=== PATIENT | female | born 1955 | race Caucasian/White ===

== ENCOUNTER 2016-09-01 13:29 | Emergency (ER) | payer BC ==
[2016-09-01 13:30] VITALS: BP 140/68; PULSE 107; RESP 16; TEMP 98; O2SAT 98
--- NOTE | 2016-09-01 13:43 | PD ---
Physical Exam Time Seen by Provider: 13:42 Narrative 60 y/o female here for evaluation of a "nervous breakdown." Denies SI/HI. Vital signs reviewed. Seen at triage desk. Awaiting bed placement. Data Data Last Documented VS Vital Signs Date Time Temp Pulse Resp B/P Pulse Ox O2 Delivery O2 Flow Rate FiO2 09/01/16 13:30 98.0 107 16 140/68 98 MDM Medical Record Reviewed: Yes Supervised Visit with FRANSISCA: Rafael Rene Sep 01, 2016 13:43
[2016-09-01 14:20] LABS: AMPHETAMINE, URINE NEG (NEG); BARBITURATES, URINE NEG (NEG); COCAINE, URINE NEG (NEG)
[2016-09-01 14:29] LABS: AUTOMATED NEUTROPHIL # 5.4 TH/MM3 (1.8-7.7); BASOPHIL # 0.1 TH/MM3 (0-0.2); BASOPHIL % 0.8 % (0.0-2.0); EOSINOPHIL % 0.3 % (0.0-4.0); HEMATOCRIT 43.6 % (35.0-46.0); HEMO FLAGS DIFF FINAL; LYMPH % 30.7 % (9.0-44.0); LYMPHOCYTE # 2.6 TH/MM3 (1.0-4.8); MEAN CELL VOLUME 89.1 FL (80.0-100.0); MEAN CORPUSCULAR HEMOGLOBIN 29.9 PG (27.0-34.0); MEAN CORPUSCULAR HGB CONC 33.6 % (32.0-36.0); MONO % 5.8 % (0.0-8.0); NEUT % 62.4 % (16.0-70.0); PLATELET COUNT 340 TH/MM3 (150-450); RED BLOOD COUNT 4.89 MIL/MM3 (4.00-5.30); RED CELL DISTRIBUTION WIDTH 13.9 % (11.6-17.2); WHITE BLOOD COUNT 8.6 TH/MM3 (4.0-11.0)
[2016-09-01 14:44] LABS: ALT (GPT) 20 U/L (10-53); ANION GAP 7 MEQ/L (5-15); AST (GOT) 20 U/L (15-37); BICARBONATE 29.3 MEQ/L (21.0-32.0); BLOOD UREA NITROGEN 9 MG/DL (7-18); CHLORIDE 106 MEQ/L (98-107); GLOMERULAR FILTRATION RATE 80 ML/MIN (>89); POTASSIUM 4.3 MEQ/L (3.5-5.1); SODIUM (NA) 142 MEQ/L (136-145)
[2016-09-01 14:47] LABS: ALKALINE PHOSPHATASE 61 U/L (45-117); TOTAL BILIRUBIN ADULT 0.3 MG/DL (0.2-1.0)
--- NOTE | 2016-09-01 14:51 | PD ---
HPI Chief Complaint: Psychiatric Symptoms Time Seen by Provider: 14:50 Travel History International Travel<30 days: No Contact w/Intl Traveler<30days: No Traveled to known affect area: No History of Present Illness HPI 60-year-old female presents to the ED via private vehicle for voluntary psychiatric evaluation. On presentation the patient complains of anxiety, depression, anhedonia, decreased appetite, insomnia. She identifies stress in her romantic relationship as the source of her stress. She endorses history of depression and states that she has sporadically taken Citalopram "for years." Last dose 3 days ago. She states that she has been coping by drinking wine and smoking cigarettes. Her best friends are at bedside and state that the patient has lost a significant amount of weight- currently weighs 68 lbs. She states that her problems have affected work, she's taken all of her time off. She denies SI or HI. Denies previous psychiatric hospitalization or suicide attempt. Denies somatic complaints. [facility] Social History Alcohol Use: Yes (bottle of wine daily) Tobacco Use: Yes Allergies-Medications (Allergen,Severity, Reaction): Coded Allergies: Penicillin (Verified Allergy, Unknown, Hives, 09/01/16) Reported Meds & Prescriptions Reported Meds & Active Scripts Active Reported Citalopram (Citalopram Hydrobromide) 10 Mg Tab 10 Mg PO DAILY Review of Systems Except as stated in HPI: all other systems reviewed are Neg Physical Exam Narrative GENERAL: Well-nourished, well-developed, thin, petite, anxious appearing white female in no acute distress. SKIN: Focused skin assessment warm/dry. HEAD: Normocephalic. EYES: No scleral icterus. No injection or drainage. PERRLA. EOMI. NECK: Supple, trachea midline. No JVD or lymphadenopathy. CARDIOVASCULAR: Regular rate and rhythm without murmurs, gallops, or rubs. RESPIRATORY: Breath sounds clear and equal bilaterally. No accessory muscle use. GASTROINTESTINAL: Abdomen scaphoid, soft, non-tender, nondistended. Active bowel sounds. MUSCULOSKELETAL: No cyanosis, or edema. The patient is ambulatory, moves the extremities bilaterally. BACK: Nontender without obvious deformity. No CVA tenderness. Data Data Last Documented VS Vital Signs Date Time Temp Pulse Resp B/P Pulse Ox O2 Delivery O2 Flow Rate FiO2 09/01/16 13:30 98.0 107 16 140/68 98 Orders Complete Blood Count With Diff (09/01/16 13:44) Comprehensive Metabolic Panel (09/01/16 13:44) Psych Screen (09/01/16 13:44) Drug Screen, Random Urine (09/01/16 13:44) Alcohol (Ethanol) (09/01/16 13:44) Urinalysis - C+S If Indicated (09/01/16 13:48) Lorazepam (Ativan) (09/01/16 15:15) Labs Laboratory Tests Test 09/01/16 09/01/16 13:55 14:15 Urine Opiates Screen NEG Urine Barbiturates Screen NEG Urine Amphetamines Screen NEG Urine Benzodiazepines Screen NEG Urine Cocaine Screen NEG Urine Cannabinoids Screen NEG White Blood Count 8.6 TH/MM3 Red Blood Count 4.89 MIL/MM3 Hemoglobin 14.6 GM/DL Hematocrit 43.6 % Mean Corpuscular Volume 89.1 FL Mean Corpuscular Hemoglobin 29.9 PG Mean Corpuscular Hemoglobin 33.6 % Concent Red Cell Distribution Width 13.9 % Platelet Count 340 TH/MM3 Mean Platelet Volume 7.4 FL Neutrophils (%) (Auto) 62.4 % Lymphocytes (%) (Auto) 30.7 % Monocytes (%) (Auto) 5.8 % Eosinophils (%) (Auto) 0.3 % Basophils (%) (Auto) 0.8 % Neutrophils # (Auto) 5.4 TH/MM3 Lymphocytes # (Auto) 2.6 TH/MM3 Monocytes # (Auto) 0.5 TH/MM3 Eosinophils # (Auto) 0.0 TH/MM3 Basophils # (Auto) 0.1 TH/MM3 CBC Comment DIFF FINAL Differential Comment Sodium Level 142 MEQ/L Potassium Level 4.3 MEQ/L Chloride Level 106 MEQ/L Carbon Dioxide Level 29.3 MEQ/L Anion Gap 7 MEQ/L Blood Urea Nitrogen 9 MG/DL Creatinine 0.74 MG/DL Estimat Glomerular Filtration 80 ML/MIN Rate Random Glucose 84 MG/DL Calcium Level 9.3 MG/DL Total Bilirubin 0.3 MG/DL Aspartate Amino Transf 20 U/L (AST/SGOT) Alanine Aminotransferase 20 U/L (ALT/SGPT) Alkaline Phosphatase 61 U/L Total Protein 7.5 GM/DL Albumin 3.9 GM/DL Ethyl Alcohol Level 28 MG/DL MDM Medical Decision Making Medical Screen Exam Complete: Yes Emergency Medical Condition: Yes Differential Diagnosis Adjustment disorder versus anxiety versus bipolar versus depression versus dementia versus electrolyte disorder versus malingering versus mood disorder versus ODD versus psychosis versus PTSD versus schizophrenia versus schizoaffective disorder versus substance-induced mood disorder versus other Narrative Course 60-year-old female presents to the ED via private vehicle for voluntary psychiatric evaluation. On presentation the patient complains of anxiety, depression, anhedonia, decreased appetite, insomnia. She identifies stress in her romantic relationship as the source of her stress. She states that she has been coping by drinking wine and smoking cigarettes. Her best friends are at bedside and state that the patient has lost a significant amount of weight- currently weighs 68 lbs. She states that her problems have affected work, she's taken all of her time off. She endorses history of depression and states that she has sporadically taken Citalopram "for years." Last dose 3 days ago. She denies SI or HI. Denies previous psychiatric hospitalization or suicide attempt. Denies somatic complaints. Vitals reviewed. Physical exam reveals a thin, anxious, intermittently tearful white female in no acute distress. Chest CTAB, abdomen scaphoid, nontender, active bowel sounds. No CTA tenderness. No lower extremity edema. No concerning abnormalities of CBC, CMP, UA. Patient was administered 0.5mg Ativan by mouth. She is medically cleared for psychiatric evaluation. Please see their notes for disposition. Diagnosis Primary Impression: Medical clearance for psychiatric admission Additional Impression: Janeth Eason Sep 01, 2016 14:51
[2016-09-01] MEDS ORDERED: CITA10TA4 PO (14:56)
[2016-09-01] MEDS ORDERED: LORazepam 0.5 MG TAB PO ONE (15:15)
[2016-09-01 20:35] VITALS: BP 103/60; PULSE 95; RESP 16; TEMP 99.1; O2SAT 96
[2016-09-02 02:30] VITALS: BP 109/56; PULSE 71; RESP 18; O2SAT 96
[2016-09-02 06:22] VITALS: BP 115/54; PULSE 76; RESP 18; O2SAT 96
[2016-09-02 06:53] LABS: BLOOD, URINE NEG (NEG); COMMENT (UR) CULT NOT INDICATED; CULTURE IF INDICATED CULT NOT INDICATED; GLUCOSE,URINE NEG (NEG); KETONE, URINE NEG (NEG); MUCUS URINE FEW /lpf (OCC); NITRITE,URINE NEG (NEG); PH, URINE 6.5 (5.0-8.5); URINE COLOR YELLOW (YELLW/STRAW)
[2016-09-02 10:00] VITALS: BP 119/53; PULSE 97; RESP 16
[2016-09-02] MEDS ORDERED: HYDR-3133 PO (10:50)
[2016-09-02 11:22] VITALS: BP 119/53; TEMP 98
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
== END 2016-09-02 11:10 | disposition home or self-care (01) ==
LOC: NEPD 13:29 → NEPJ 09-02 11:10
DX: F43.20 Adjustment disorder, unspecified (principal); F41.9 Anxiety disorder, unspecified; F10.10 Alcohol abuse, uncomplicated; Y90.1 Blood alcohol level of 20-39 mg/100 ml; Z79.899 Other long term (current) drug therapy
CPT/HCPCS: 80053; 80307; 81001; 85025; 99284